=== PATIENT | female | born 1955 | race Caucasian/White ===

== ENCOUNTER 2017-12-07 10:39 | Observation (INO) ==
--- OUTSIDE RECORDS SUMMARY | 2017-12-07 12:21 | External Medical Summary | CCD ---
:1955 Author Name NITZA HOOD Address [address], [place] [id number] Care Team Providers Name Role Phone GEORGINA SERVIN Attending Physician Unavailable Vital Signs Unknown or Not Available. Allergies Unknown or Not Available. Procedures Unknown or Not Available. History of Immunizations Unknown or Not Available. Problems Unknown or Not Available. Results Unknown or Not Available. Active Medications Unknown or Not Available. Medications Administered During Visit Unknown or Not Available. Encounters Encounter Diagnosis Diagnosis Code Start Date Benign paroxysmal vertigo, H8111 12/19/2015 right ear Social History Smoking Status Code Start Date End Date Former smoker [id number] Patient Decision Aids Unknown or Not Available. Discharge Instructions You were admitted to [facility]; [facility] on 12/19/2015 13:55 with a principal diagnosis of Benign paroxysmal vertigo, right ear You were discharged from [facility]; [facility] Should you have any questions prior to discharge, please contact a member of your healthcare team. If you have left the hospital and have any questions, please contact your primary care physician. Chief Complaint and Reason For Visit Chief Complaint Date of Onset SELF REFERRAL PTH Function Status Unknown or Not Available. Plan of Care Unknown or Not Available. Referral/Transition of Care Unknown or Not Available.
--- OUTSIDE RECORDS SUMMARY | 2017-12-07 12:21 | External Medical Summary | CCD ---
:1955 Author Name NITZA HOOD Address [address] [place], [place] [id number] Care Team Providers Name Role Phone BERHANE FARIAS Attending Physician Unavailable Vital Signs Unknown or Not Available. Allergies Unknown or Not Available. Procedures Unknown or Not Available. History of Immunizations Unknown or Not Available. Problems Unknown or Not Available. Results COMP METABOLIC - Collect Date/Time: 08/07/2016 10:30 Test Name Code Test Result Test Units Test Ref Range GLUCOSE 87 mg/dL L=70 H=110 BUN 13 mg/dL L=7 H=18 CREATININE 0.76 mg/dL L=0.60 H=1.30 AGE 61 YEARS GFR 77.9 L=60.0 H=120 SODIUM 138 mmol/L L=136 H=145 POTASSIUM 4.0 mmol/L L=3.5 H=5.1 CHLORIDE 102 mmol/L L=98 H=107 CO2 27 mmol/L L=21 H=32 CALCIUM 9.6 mg/dL L=8.5 H=10.1 AST 24 U/L L=15 H=37 ALT 47 U/L L=12 H=78 ALKALINE PHOS 105 U/L L=50 H=136 TOTAL PROTEIN 7.6 g/dL L=6.4 H=8.2 ALBUMIN 4.0 g/dL L=3.4 H=5.0 TOTAL BILI 0.50 mg/dL L=0.00 H=1.00 CORRECT BAR N/A HGB A1C - Collect Date/Time: 08/07/2016 10:30 Test Name Code Test Result Test Units Test Ref Range HGB A1C 5.6 % L=4.5 H=6.2 eAG 114 mg/dL LIPID PANEL - Collect Date/Time: 08/07/2016 10:30 Test Name Code Test Result Test Units Test Ref Range CHOLESTEROL 259 mg/dL L=0 H=200 TRIGLYCERIDES 111 mg/dL L=30 H=150 HDL 63 mg/dL L=50 H=60 LDL, CALC 174 mg/dL L=0 H=100 VLDL 22 mg/dL L=0 H=40 CHOL/HDL RISK 4.1 RATIO L=0.0 H=4.4 PT FASTING: ? N/A TSH - Collect Date/Time: 08/07/2016 10:30 Test Name Code Test Result Test Units Test Ref Range TSH 2.17 uIU/mL L=0.36 H=3.74 CBC W/ DIFF - Collect Date/Time: 08/07/2016 10:30 Test Name Code Test Result Test Units Test Ref Range WBC 7.6 x10^3 L=4.8 H=10.8 RBC 4.89 x10^6 L=4.20 H=5.40 HEMOGLOBIN 14.6 g/dL L=12.0 H=16.0 HEMATOCRIT 44.3 % L=37.0 H=47.0 MCV 91 fL L=80 H=100 MCH 29.7 pg L=27.0 H=33.0 MCHC 32.8 g/dL L=33.0 H=37.0 RDW 12.5 % L=11.5 H=14.5 PLATELETS 384 x10^3 L=150 H=450 MPV 7.9 fL L=7.8 H=11.0 NEUTROPHILS 64.0 % L=40.0 H=80.0 LYMPHOCYTES 28.1 % L=20.0 H=45.0 MONOCYTES 5.6 % L=0.0 H=10.0 EOSINOPHILS 1.5 % L=0.0 H=5.0 BASOPHILS 0.8 % L=0.0 H=2.0 REFLEX MAN DIFF NO N/A Active Medications Unknown or Not Available. Medications Administered During Visit Unknown or Not Available. Encounters Encounter Diagnosis Diagnosis Code Start Date Essential (primary) hypertension I10 08/07/2016 Social History Smoking Status Code Start Date End Date Former smoker [id number] Patient Decision Aids Unknown or Not Available. Discharge Instructions You were admitted to [facility] on 08/07/2016 10:22 with a principal diagnosis of Essential (primary) hypertension You had the following tests done: CBC W/ DIFF COMP METABOLIC HGB A1C LIPID PANEL TSH You were discharged from [facility] on 08/07/2016 10:22 Should you have any questions prior to discharge, please contact a member of your healthcare team. If you have left the hospital and have any questions, please contact your primary care physician. Chief Complaint and Reason For Visit Chief Complaint Date of Onset LAB XR LT ANKLE Function Status Unknown or Not Available. Plan of Care Unknown or Not Available. Referral/Transition of Care Unknown or Not Available.
--- OUTSIDE RECORDS SUMMARY | 2017-12-07 12:21 | External Medical Summary | CCD ---
:1955 Author Name HOOD, NITZA Address [address] [place], [place] [id number] Care Team Providers Name Role Phone NIKIA SNYDER Attending Physician Unavailable Vital Signs Unknown or Not Available. Allergies Unknown or Not Available. Procedures Unknown or Not Available. History of Immunizations Unknown or Not Available. Problems Unknown or Not Available. Results Unknown or Not Available. Active Medications Unknown or Not Available. Medications Administered During Visit Unknown or Not Available. Encounters Encounter Diagnosis Diagnosis Code Start Date Dizziness and giddiness R42 05/06/2016 Social History Smoking Status Code Start Date End Date Former smoker [id number] Patient Decision Aids Unknown or Not Available. Discharge Instructions You were admitted to [facility] on 05/06/2016 08:58 with a principal diagnosis of Dizziness and giddiness You were discharged from [facility] on 05/06/2016 08:58 Should you have any questions prior to discharge, please contact a member of your healthcare team. If you have left the hospital and have any questions, please contact your primary care physician. Chief Complaint and Reason For Visit Chief Complaint Date of Onset MRI BRAIN WWO CONT Function Status Unknown or Not Available. Plan of Care Unknown or Not Available. Referral/Transition of Care Unknown or Not Available.
--- OUTSIDE RECORDS SUMMARY | 2017-12-07 12:21 | External Medical Summary | CCD ---
:1955 Author Name HOODNITZA SHERIDAN Address [address] [place], [place] [id number] Care Team Providers Name Role Phone BERHANE [...] Encounters Encounter Diagnosis Diagnosis Code Start Date Unspecified injury of left [id number] 08/19/2016 ankle, initial encounter Social History Smoking Status Code Start Date End Date Former smoker [id number] Patient Decision Aids Unknown or Not Available. Discharge Instructions You were admitted to [facility] on 08/19/2016 10:02 with a principal diagnosis of Unspecified injury of left ankle , initial encounter You were discharged from [facility] on 08/19/2016 10:02 Should you have any questions prior to discharge, please contact a member of your healthcare team. If you have left the hospital and have any questions, please contact your primary care physician. Chief Complaint and Reason For Visit Chief Complaint Date of Onset MRI LOW EXT JNT WO CONTR LT Function Status Unknown or Not Available. Plan of Care Unknown or Not Available. Referral/Transition of Care Unknown or Not Available.
--- OUTSIDE RECORDS SUMMARY | 2017-12-07 12:21 | External Medical Summary | CCD ---
:1955 Author Name NITZA HOOD Address [address] [place], [place] [phone] Care Team Providers Name Role Phone VIKI PICKETT Attending Physician Unavailable Vital Signs Unknown or Not Available. Allergies Unknown or Not Available. Procedures Unknown or Not Available. History of Immunizations Unknown or Not Available. Problems Unknown or Not Available. Results TSH - Collect Date/Time: 10/22/2015 12:45 Test Name Code Test Result Test Units Test Ref Range TSH 3.08 uIU/mL L=0.36 H=3.74 Active Medications Unknown or Not Available. Medications Administered During Visit Unknown or Not Available. Encounters Encounter Diagnosis Diagnosis Code Start Date Hypothyroidism, unspecified E039 10/22/2015 Social History Smoking Status Code Start Date End Date Former smoker [id number] Patient Decision Aids Unknown or Not Available. Discharge Instructions You were admitted to [facility] on 10/22/2015 12:40 with a principal diagnosis of Hypothyroidism, unspecified You had the following tests done: TSH You were discharged from [facility] on 10/22/2015 12:40 Should you have any questions prior to discharge, please contact a member of your healthcare team. If you have left the hospital and have any questions, please contact your primary care physician. Chief Complaint and Reason For Visit Unknown or Not Available. Function Status Unknown or Not Available. Plan of Care Unknown or Not Available. Referral/Transition of Care Unknown or Not Available.
[2017-12-07 12:22] VITALS: BMI 34.4
--- OUTSIDE RECORDS SUMMARY | 2017-12-07 12:22 | External Medical Summary | Continuity of Care Document ---
:1955 Demographics Phone Unavailable Preferred Language Unknown Marital Status Unknown Faith Affiliation Unknown Race Unknown Ethnic Group Unknown Author Organization [facility] Allergies Active Description Code Type Severity Reaction Onset Reported/ Identified Relationship Clinical to Patient Status Yes NKDA N/A N/A Yes No Known Aller Unknown N/A 03/03/2017 Allergies gy Medications Medication Packaging Start Date Stop Date Route Dosage Sig 01/14/2017 PO 220 mg Naproxen Sodium BID 01/14/2017 PO 300 mg Gabapentin DAILY Low 01/14/2017 PO 81 mg Dose Aspirin EC DAILY 01/14/2017 PO 1,000 mg Glucophage BID 01/14/2017 PO 75 mcg Synthroid DAILY Problems Date Dx Coded Attending Type Code Diagnosis Diagnosed By 01/22/2017 STARLA RUBI, M19.072 Primary STARLA RUBI, RAI S osteoarthritis, RAI S left ankle and foot 01/22/2017 STARLA RUBI, M76.62 Alphonse CHA MD, RAI S tendinitis, left RAI S leg 01/22/2017 STARLA RUBI, S93.402A Sprain of STARLA RUBI, RAI S unspecified RAI S ligament of left ankle, initial encounter 01/22/2017 STARLA RUBI, S99.912A Unspecified injury STARLA RUBI, RAI S of left ankle, RAI S initial encounter 03/03/2017 STARLA RUBI, M19.072 Primary STARLA RUBI, RAI S osteoarthritis, RAI S left ankle and foot 03/03/2017 STARLA RUBI, M76.62 Alphonse CHA MD, RAI S tendinitis, left RAI S leg 03/03/2017 STARLA RUBI, S99.912A Unspecified injury STARLA RUBI, RAI S of left ankle, RAI S initial encounter Procedures There is no data. Results There is no data. Encounters ACCT No. Visit Discharge Status Pt. Type Provider Facility Loc./Unit Complaint Date/Time [id number] 09/05/2016 ACT Unknown [id number] 09:38:00 [id number] 09/05/2016 ACT Unknown [id number] 09:37:00 [id number] 06/30/2016 ACT Unknown [id number] 14:16:00 [id number] 01/10/2016 ACT Unknown [id number] 09:46:00 [id number] 11/12/2015 ACT Unknown [id number] 10:34:00 [id number] 07/19/2013 ACT Unknown [id number] 09:06:00 [id number] 06/21/2013 ACT Unknown [id number] 09:33:00 [id number] 06/17/2013 ACT Unknown [id number] 10:23:00 [id number] 05/29/2016 05/29/2016 CLS Outpatient [id number] 08:07:57 23:59:59 57 [id number] 05/29/2016 05/29/2016 CLS Outpatient [id number] 07:59:14 23:59:59 14 [id number] 05/29/2016 05/29/2016 ACT Outpatient [id number] 06:44:32 06:44:32 32 [id number] 05/07/2016 05/07/2016 DIS Outpatient [id number] 09:47:48 09:47:48 48 [id number] 05/07/2016 05/07/2016 DIS Outpatient [id number] 09:47:29 09:47:29 29 [id number] 05/02/2016 05/02/2016 CLS Outpatient [id number] 08:58:22 23:59:59 22 [id number] 05/02/2016 05/02/2016 DIS Outpatient [id number] 10:45:05 10:45:07 05 [id number] 05/02/2016 05/02/2016 DIS Outpatient [id number] 08:58:23 08:58:23 23 [id number] 05/01/2016 05/01/2016 CLS Outpatient [id number] 12:17:25 23:59:59 25 [id number] 05/01/2016 05/01/2016 DIS Outpatient [id number] 11:49:24 11:49:25 24 [id number] 05/01/2016 05/01/2016 DIS Outpatient [id number] 11:37:23 11:37:23 23 [id number] 05/01/2016 05/01/2016 DIS Outpatient [id number] 11:36:03 11:36:04 03 [id number] 05/01/2016 05/01/2016 DIS Outpatient [id number] 11:01:14 11:01:15 14 [id number] 05/01/2016 05/01/2016 DIS Outpatient [id number] 10:58:00 10:58:00 00 [id number] 05/01/2016 05/01/2016 DIS Outpatient [id number] 10:39:33 10:39:34 33 [id number] 05/01/2016 05/01/2016 DIS Outpatient [id number] 10:39:30 10:39:30 30 [id number] 05/01/2016 05/01/2016 DIS Outpatient [id number] 10:38:04 10:38:04 04 [id number] 05/01/2016 05/01/2016 DIS Outpatient [id number] 10:31:34 10:31:34 34 [id number] 05/01/2016 05/01/2016 DIS Outpatient [id number] 10:31:33 10:31:33 33 [id number] 05/01/2016 05/01/2016 DIS Outpatient [id number] 10:30:48 10:30:48 48 [id number] 05/01/2016 05/01/2016 DIS Outpatient [id number] 10:30:47 10:30:48 47 [id number] 05/01/2016 05/01/2016 DIS Outpatient [id number] 10:28:30 10:28:30 30 [id number] 04/15/2016 04/15/2016 ACT Outpatient [id number] 03:10:09 03:10:09 09 [id number] 04/14/2016 04/14/2016 ACT Outpatient [id number] 22:30:58 22:30:58 58 [id number] 04/14/2016 04/14/2016 ACT Outpatient [id number] 22:30:57 22:30:57 57 [id number] 04/14/2016 04/14/2016 ACT Outpatient [id number] 22:29:42 22:29:42 42 [id number] 04/14/2016 04/14/2016 ACT Outpatient [id number] 22:29:41 22:29:41 41 [id number] 04/14/2016 04/14/2016 ACT Outpatient [id number] 16:59:30 16:59:30 30 [id number] 04/14/2016 04/14/2016 ACT Outpatient [id number] 16:59:10 16:59:10 10 [id number] 05/01/2016 Document [id number] 10:54:00 Registrati on [id number] 03/03/2017 03/03/2017 DIS Outpatient STARLA Holloway left ankle 00 14:36:00 15:52:00 , Ortho injury [facility] [id number] 01/29/2017 01/29/2017 DIS Outpatient STARLA FAIR.NOSM 06 09:23:00 09:59:00 RAI RUBI [id number] 01/22/2017 01/22/2017 DIS Outpatient STARLA Holloway Lt ankle 25 08:28:00 11:27:00 , Ortho [facility]
--- NOTE | 2017-12-07 13:02 | Cardiology History & Physical ---
History of Present Illness Chief complaint: chest pain HPI: Giovana is a 62 year old female with no previous history of heart disease who awoke at 0300 this morning with right sided chest pain that she describes as stabbing under her breast and through to her back, accompanied with nausea. She got up to the recliner and the pain became more of a dull nagging pain which persisted until she eventually went to Dr. Valadez office for evaluation. She reports loose stools the past day but denies recent illness, fever, chills, sore throat, cough, palpitations, dyspnea, orthopnea, N/V, dysuria, rash. Review of Systems - Constitutional Constitutional: Present: as per HPI. Absent: fatigue - EENMT Eyes: Absent: change in vision Balance: Absent: vertigo Mouth/Throat: Present: as per HPI - Cardiovascular Cardiovascular: Present: chest pain. Absent: palpitations, syncope, dyspnea on exertion, orthopnea, edema, heart murmur Rhythm: Absent: abnormal rhythm Vascular: Present: intermittent claudication. Absent: pedal edema - Respiratory Respiratory: Present: as per HPI - Gastrointestinal Gastrointestinal: Present: as per HPI - Genitourinary Genitourinary: Present: as per HPI - Integumentary/Breasts Integumentary: Present: as per HPI - Neurological Neurological: Absent: dizziness - Endocrine Endocrine: Absent: palpitations PFSH Patient Stated Medical History Peripheral Neuropathy Yes Transient Ischemic Attacks ( Yes TIA) Angina Yes Hypertension Yes Bronchitis Yes Pneumonia Yes Osteoarthritis Yes Shingles Yes Diabetes Yes, Type II Clinic Medical History (Last Reviewed 03/03/17 @ 19:28 by Devika Humphreys MD) Thyroid disease (Acute Medical) Prediabetes (Acute Medical) Surgical History: . Total hysterectomy. Cholecystectomy Family History: Family History (Last Reviewed 03/03/17 @ 19:28 by Devika Humphreys MD) Mother High cholesterol Thyroid disease Diabetes Cancer of colon Father Heart attack Sister Heart attack - Social History Smoking status: Former smoker Substance use type: does not use Alcohol intake: never Household members: spouse Current occupational status: employed Medications Home Medications Medication Instructions Recorded Confirmed Type Glucophage (metformin) 1,000 mg 1,000 mg PO BID 01/14/17 12/07/17 History tablet Naproxen sodium 220 mg tablet 440 mg PO BID PRN tab 01/14/17 12/07/17 History Neurontin (gabapentin) 300 mg 900 mg PO DAILY cap 01/14/17 12/07/17 History capsule ascorbic acid (vitamin C) 1,000 mg PO BID 01/22/17 12/07/17 History black cohosh 540 mg PO BID 01/22/17 12/07/17 History multivitamin 1 tab PO DAILY 01/22/17 12/07/17 History niacin 1,000 mg PO DAILY 01/22/17 12/07/17 History soy isofla-blk cohosh-mag bark 3 tab PO BID 01/22/17 12/07/17 History Aspirin *EC* [Ecotrin] 1 tab PO DAILY 12/07/17 12/07/17 History Cholecalciferol (Vitamin D3) 1 tab PO DAILY 12/07/17 12/07/17 History [Vitamin D3] Cyanocobalamin (Vitamin B-12) 1,000 mcg PO DAILY 12/07/17 12/07/17 History [Vitamin B-12] Diclofenac Sodium [Voltaren] 75 mg PO BID 12/07/17 12/07/17 History Glucosa Tadeo 2Kcl/Chondroitin Tadeo 1 each PO DAILY 12/07/17 12/07/17 History [Glucosamine Chondroitin Caplet] Levothyroxine Sodium 88 mcg PO ACB 12/07/17 12/07/17 History Lisinopril [Prinivil] 10 mg PO DAILY 12/07/17 12/07/17 History [place]-3/Dha/Epa/Fish Oil [Fish Oil 1,000 mg PO DAILY 12/07/17 12/07/17 History 1,000 mg Softgel] dimenhyDRINATE [Dramamine] 25 mg PO PRN 12/07/17 12/07/17 History Ascorbic Acid [Vitamin C] 1,000 mg PO BID tab 12/08/17 Rx Atorvastatin [Lipitor] 40 mg PO HS #30 tab 12/08/17 Rx Allergies Allergy/AdvReac Type Severity Reaction Status Date / Time No Known Allergies Allergy Verified 12/07/17 12:17 Exam Vital signs: Temperature 98.8 F 12/07/17 12:27 Pulse Rate 76 12/07/17 12:39 Respiratory Rate 16 12/07/17 12:27 Blood Pressure 178/78 H 12/07/17 12:27 Pulse Oximetry 96 12/07/17 12:27 - Constitutional no acute distress, well nourished, cooperative - Routine HEENT Exam Head: Present: normocephalic ENT: Present: mucous membranes moist - Routine Neck Exam Absent: JVD, carotid bruit - Routine Chest/Breast/Axilla Exam Chest wall: Present: tenderness - Routine Respiratory Exam Present: CTA bilaterally. Absent: rales, wheezes - Routine Cardiovascular Exam Present: RRR, no murmur. Absent: JVD - Routine Abdominal Exam Present: soft, non tender - Routine Extremities Exam Present: no edema - Routine Skin Exam Present: intact, dry, warm - Routine Neurological Exam Present: alert, oriented X3 - Routine Psychiatric Exam Present: normal affect, normal thought process Results 12/08/17 04:16 12/08/17 04:16 Intake and Output 12/06/17 12/07/17 12/07/17 22:59 06:59 14:59 Other: Weight 207 lb 3.752 oz Patient Weight 12/08/17 06:59 Weight 207 lb 3.752 oz - Imaging and Cardiology Echo: pending EKG interpretations - EKG EKG results cardiology: sinus rhythm EKG shows: bradycardia - Blocks, axis, hypertrophy, ST abn AV and intraventricular conduction: right bundle branch block (fixed/ intermittent, complete/incomplete) - ME, pacemaker, normal Myocardial infarction: anterior ME (old age or indeterminate) Hospital Course This is a general summary of the patient's hospital course. For more details refer to the complete medical record. Time spent with patient: 25 - 35 minutes Resuscitation Status: Full Code Assessment and Plan - Attestation Attestation Narrative: 12/09/17 13:26 Recommendation After examining the patient I agree with the above assessment. I am involved in the formulation of the patient's plan of care. - Assessment and Plan (1) Atypical chest pain Status: Acute Pain free now - initial troponin in K[place]ace and her,. both are negative - Trend 2 more troponin - EKG: SR, incomplete RBBB, possible anterior ME, indeterminate age - 2D echo - Lovenox for DVT prophylaxis - Repeat EKG in am (2) Essential (primary) hypertension Status: Chronic Continue home Lisinopril, routine monitoring (3) Type 2 diabetes mellitus without complications Status: Chronic Continue Metformin, PCP manages (4) Thyroid disease Status: Chronic Continue Levothyroxine (5) Mixed hyperlipidemia Status: Chronic Start Atorvastatin 40mg daily at HS - LFTs in 2 weeks, LFTs and Lipids in 8 weeks - Assessment and Plan Atypical chest: Pain free now - initial troponin in Kandace and her,. both are negative - Trend 2 more troponin - EKG: SR, incomplete RBBB, possible anterior ME, indeterminate age - 2D echo - Lovenox for DVT prophylaxis - Repeat EKG in am
[2017-12-07] MEDS: ENOXAPARIN 40 MG/0.4 ML INJECTION SQ SCH (15:28)
[2017-12-07] MEDS: ASPIRIN *EC* 81 MG TABLET PO SCH (15:28)
[2017-12-07] MEDS: DICLOFENAC SODIUM DR 25 MG TABLET PO SCH (20:01)
[2017-12-07] MEDS: ASCORBIC ACID 500 MG TABLET PO SCH (20:01)
[2017-12-07] MEDS: METFORMIN 1,000 MG TABLET PO SCH (20:02)
[2017-12-07 23:06] VITALS: O2SAT 95
[2017-12-08] MEDS ORDERED: LEVOTHYROXINE 88 MCG TABLET PO SCH (06:30)
[2017-12-08 07:40] VITALS: BP 129/67; RESP 16; TEMP 98
[2017-12-08] MEDS ORDERED: GABAPENTIN 300 MG CAPSULE PO SCH (09:00)
[2017-12-08] MEDS ORDERED: LISINOPRIL 10 MG TABLET PO SCH (09:00)
[2017-12-08] MEDS ORDERED: NAPROXEN 220 MG TABLET PO PRN (09:12)
[2017-12-08] MEDS ORDERED: DimenhyDRINATE 50 MG TABLET PO PRN (09:15)
--- NOTE | 2017-12-08 09:28 | Discharge Summary ---
<Blanca Landaverde - Last Filed: 12/08/17 09:25> Discharge Information Date of admission: 12/07/17 12:14 Anticipated date of discharge: 12/08/17 Attending Physician: Yury Middleton MD Primary care physician: Rukhsana Acosta MD - Discharge Diagnosis (1) Atypical chest pain Status: Acute (2) Essential (primary) hypertension Status: Chronic (3) Type 2 diabetes mellitus without complications Status: Chronic (4) Thyroid disease Status: Chronic (5) Mixed hyperlipidemia Status: Chronic Atypical chest pain, HTN, DM, HLD, - Laboratory Labs: 12/08/17 04:16 12/08/17 04:16 History of Present Illness HPI: Giovana is a 62 year old female with no previous history of heart disease who awoke at 0300 this morning with right sided chest pain that she describes as stabbing under her breast and through to her back, accompanied with nausea. She got up to the recliner and the pain became more of a dull nagging pain which persisted until she eventually went to Dr. Valadez office for evaluation. She reports loose stools the past day but denies recent illness, fever, chills, sore throat, cough, palpitations, dyspnea, orthopnea, N/V, dysuria, rash. Hospital Course This is a general summary of the patient's hospital course. For more details refer to the complete medical record. Hospital course: (1) Atypical chest pain Current visit: Yes Status: Acute Pain free now - initial troponin in [place] and her,. both are negative - Trend 2 more troponin - EKG: SR, incomplete RBBB, possible anterior NC, indeterminate age - 2D echo - Lovenox for DVT prophylaxis - Repeat EKG in am (2) Essential (primary) hypertension Current visit: Yes Status: Chronic Continue home Lisinopril, routine monitoring (3) Type 2 diabetes mellitus without complications Current visit: Yes Status: Chronic Continue Metformin, PCP manages (4) Thyroid disease Current visit: No Status: Chronic Continue Levothyroxine (5) Mixed hyperlipidemia Current visit: Yes Status: Chronic Start Atorvastatin 40mg daily at HS - LFTs in 2 weeks, LFTs and Lipids in 8 weeks Time spent with patient: 25 - 35 minutes Resuscitation Status: Full Code Exam Vital signs: Temperature 98 F 12/08/17 07:39 Pulse Rate 68 12/08/17 07:39 Respiratory Rate 16 12/08/17 07:39 Blood Pressure 129/67 12/08/17 07:39 Pulse Oximetry 95 12/08/17 07:39 - Constitutional no acute distress, cooperative - Routine HEENT Exam Head: Present: normocephalic ENT: Present: mucous membranes moist - Routine Skin Exam Present: intact, dry, warm - Routine Neurological Exam Present: alert, oriented X3 - Routine Psychiatric Exam Present: normal affect, normal thought process Results 12/08/17 04:16 12/08/17 04:16 Cardiac Enzymes 12/07/17 12/07/17 12/07/17 Range/Units 12:55 17:34 22:49 Troponin I < 0.012 < 0.012 < 0.012 (0-0.12) ng/ml Lipids 12/08/17 Range/Units 04:16 Triglycerides 185 H (35-135) mg/dL Cholesterol 248 H (132-199) mg/dL HDL Cholesterol 41 (40-60) mg/dL Cholesterol/HDL Ratio 6.0 H (0-4.0) RATIO CBC 12/08/17 Range/Units 04:16 WBC 8.0 (4.5-11.0) T/MM3 RBC 4.48 (4.00-5.20) M/MM3 Hgb 13.4 (12-16) GM/DL Hct 41.0 (36-46) % Plt Count 379 (130-400) T/MM3 Comprehensive Metabolic Panel 12/08/17 Range/Units 04:16 Sodium 141 (134-144) MEQ/L Potassium 4.4 (3.6-5) MEQ/L Chloride 102 (98-107) MEQ/L Carbon Dioxide 28 (22-30) MEQ/L BUN 21.0 H (7-17) MG/DL Creatinine 0.7 (0.7-1.2) mg/dL Glucose 93 (65-110) MG/DL Calcium 9.4 (8.4-10.2) MG/DL Intake and Output 12/07/17 12/08/17 12/08/17 22:59 06:59 14:59 Intake Total 200 / 200 Balance 200 / 200 Intake: Oral 200 / 200 Other: Urine Appearance Clear Urine Color Yellow Urine Odor Normal # Voids 1 1 Weight 204 lb 9.423 oz Patient Weight 12/09/17 06:59 Weight 204 lb 9.423 oz - Imaging and Cardiology Echo: pending Discharge Plan - Med Rec/Dispo Referrals/Follow Up: Yury Middleton MD [Physician] - [facility] Instructions: Chest Pain (DC) Prescriptions: New Atorvastatin [Lipitor] 40 mg PO HS #30 tab Ascorbic Acid [Vitamin C] 1,000 mg PO BID tab Continue Levothyroxine Sodium 88 mcg PO ACB Cyanocobalamin (Vitamin B-12) [Vitamin B-12] 1,000 mcg PO DAILY Cholecalciferol (Vitamin D3) [Vitamin D3] 1 tab PO DAILY dimenhyDRINATE [Dramamine] 25 mg PO PRN Lisinopril [Prinivil] 10 mg PO DAILY Diclofenac Sodium [Voltaren] 75 mg PO BID Glucosa Tadeo 2Kcl/Chondroitin Tadeo [Glucosamine Chondroitin Caplet] 1 each PO DAILY Aspirin *EC* [Ecotrin] 1 tab PO DAILY [place]-3/Dha/Epa/Fish Oil [Fish Oil 1,000 mg Softgel] 1,000 mg PO DAILY Naproxen sodium 220 mg tablet 440 mg PO BID PRN tab PRN Reason: Pain Glucophage (metformin) 1,000 mg tablet 1,000 mg PO BID Neurontin (gabapentin) 300 mg capsule 900 mg PO DAILY cap ascorbic acid (vitamin C) 1,000 mg PO BID No Action soy isofla-blk cohosh-mag bark 3 tab PO BID black cohosh 540 mg PO BID niacin 1,000 mg PO DAILY multivitamin 1 tab PO DAILY - Disposition 01 Discharged Home, Self-Care - Dismissal Complete Discharge Instructions are:: Incomplete <Yury Middleton - Last Filed: 12/14/17 16:24> Discharge Information Date of admission: 12/07/17 12:14 Attending Physician: Yury Middleton MD Primary care physician: Rukhsana Acosta MD - Discharge Diagnosis (1) Atypical chest pain Status: Acute (2) Essential (primary) hypertension Status: Chronic (3) Type 2 diabetes mellitus without complications Status: Chronic (4) Thyroid disease Status: Chronic (5) Mixed hyperlipidemia Status: Chronic - Laboratory Labs: 12/08/17 04:16 12/08/17 04:16 Hospital Course This is a general summary of the patient's hospital course. For more details refer to the complete medical record. Exam Vital signs: Temperature 98 F 12/08/17 07:39 Pulse Rate 67 12/08/17 08:00 Respiratory Rate 16 12/08/17 07:39 Blood Pressure 129/67 12/08/17 07:39 Pulse Oximetry 95 12/08/17 07:39 - Routine Neck Exam Absent: JVD, carotid bruit - Routine Chest/Breast/Axilla Exam Chest wall: Absent: tenderness - Routine Respiratory Exam Present: CTA bilaterally, diminished air movement - Routine Cardiovascular Exam Present: RRR - Routine Abdominal Exam Present: soft, non tender - Routine Extremities Exam Present: no edema Results 12/08/17 04:16 12/08/17 04:16 Attestation Narriative - Attestation Attestation Narrative: 12/14/17 16:24 Recommendation After examining the patient I agree with the above assessment. I am involved in the formulation of the patient's plan of care.
[2017-12-08] MEDS: ASPIRIN *EC* 81 MG TABLET PO SCH (10:03)
[2017-12-08] MEDS: DICLOFENAC SODIUM DR 25 MG TABLET PO SCH (10:03)
[2017-12-08] MEDS: ASCORBIC ACID 500 MG TABLET PO SCH (10:03)
[2017-12-08] MEDS: METFORMIN 1,000 MG TABLET PO SCH (10:04)
[2017-12-08] MEDS: ENOXAPARIN 40 MG/0.4 ML INJECTION SQ SCH (10:04)
[2017-12-08 11:15] VITALS: PULSE 67
--- NOTE | 2017-12-08 14:50 | Echocardiogram ---
DATE OF PROCEDURE December 07, 2017 This is a two-dimensional echo with spectral Doppler, color-flow and M-mode. It was obtained in a patient with chest pain. Left atrial dimension is normal. Left ventricular end-diastolic dimension is normal. Left ventricle wall thickness is normal. LV systolic function is normal with ejection fraction of about 70%. Right atrium is normal. Right ventricle is normal. Aortic root dimension is normal. Mitral valve is morphologically normal with mild mitral regurgitation. Aortic valve is a trileaflet structure with no stenosis or insufficiency. Tricuspid valve shows mild tricuspid regurgitation with pulmonary artery pressure at the upper limits of normal at 32. Pulmonary valve shows no pulmonary insufficiency. There is no pericardial effusion. IMPRESSION 1. Normal LV systolic function with ejection fraction of 70%. 2. Mild mitral regurgitation. 3. Mild tricuspid regurgitation with estimated pulmonary artery systolic pressure of 32. MTDD
[2017-12-08] MEDS ORDERED: ATORVASTATIN 40 MG TABLET PO SCH (21:00)
[2017-12-08] MEDS ORDERED: [UNRECOGNIZED DRUG - OTHER] PO SCH (21:00)
[2017-12-08] MEDS ORDERED: NIACIN ER 500 MG TABLET PO SCH (21:00)
[2017-12-09] MEDS ORDERED: GLUCOSAMINE/CHONDROITIN 500 MG/400 MG CAPSULE PO SCH (09:00)
[2017-12-09] MEDS ORDERED: MULTI-VITAMIN PLAIN TABLET PO SCH (09:00)
== END 2017-12-08 11:10 | disposition home or self-care (01) ==
LOC: SRG
PROVIDERS: ADMIT Internal Medicine Cardiovascular Disease; ATTEND Internal Medicine Cardiovascular Disease